=== PATIENT | male | born 1970 | race Caucasian/White ===

== ENCOUNTER → 2018-04-06 | Day surgery (SDC) | payer BC ==
[~2018-04-06] MED LIST: ANTIBIOTIC PO; CLARITIN-D 241 EACH PO; FENTANYL CITRATE/PF 100MCG/2 ML INJ ONE; HYOSCYAMINE SULFATE 0.5 MG/ML AMP ONE; LEXAPRO10 MG PO; LIDOCAINE HCL 2% LOCAL INJ 5 ML SDV VIAL INJ ONE; MIDAZOLAM HCL 2 MG/2 ML VIAL ONE; MULTIVITAMIN; PANTOPRAZOLE SO40 MG PO; PHENYLEPHRINE HCL 1% 10 MG/ML VIAL ONE; PROPOFOL IV EMULSION 10 MG/ML 50 ML VIAL ONE; PROTONIX
--- OUTSIDE RECORDS SUMMARY | 2018-04-06 07:10 | XMS REPORT ---
Author Author [facility] Address Unknown Phone Unavailable Care Team Providers Care [employer] Worker [employer]man Name Role Phone SHAHRZAD SPENCER Unavailable Unavailable Problems This patient has no known problems. Allergies, Adverse Reactions, Alerts This patient has no known allergies or adverse reactions. Medications This patient has no known medications. Results Test Description Test Time Test Comments Text Results Atomic Results Result Comments CT CHEST WO [place] [address] Patient Name: BLAISE ALEJO MR #: [id number] : 1970 Age/Sex: 46/M Req #: [id number] Adm Physician: Ordered by: SHAHRZAD SPENCER DO Report #: [id number] Location: CT Room/Bed: Procedure: [id number] CT/CT CHEST WO Exam Date: 10/11/17 Exam Time: 1400 REPORT STATUS: Signed PROCEDURE: CT CHEST WITHOUT CONTRAST CT scan of the chest WITHOUT intravenous contrast, using standard protocol. TECHNIQUE: The chest was scanned utilizing a multidetector helical scanner from the apex to the level of the adrenal glands. No IV contrast was administered per protocol/per physician request). Coronal and sagittal multiplanar reformations were obtained. COMPARISON: [facility], CT, CT ABDOMEN/PELVIS W, 09/20/2017, 15:35. INDICATIONS: LUNG NODULES FINDINGS: Lines/tubes: None. Lungs and Airways: There is a 0.6 cm subpleural nodule with central cavitation in the posterior lateral right lower lobe on coronal image 90; this corresponds to the previously described are 0.6 cm in nodule. No additional pulmonary nodules are noted. Mild lingular linear atelectasis or scarring. Pleura: The pleural spaces are clear. Heart and mediastinum: The thyroid gland is normal. No significant mediastinal, hilar or axillary lymphadenopathy is seen. The heart and pericardium are within normal limits. Atherosclerotic ulcerations of the thoracic aorta including major branches without aneurysmal dilatation. Mild calcifications of the LAD coronary artery.. Soft tissues: Normal. Abdomen: Limited views of the upper abdomen show no abnormality within the visualized liver, spleen, pancreas, or kidneys. The adrenal glands are normal. Bones: Small midthoracic Schmorl's nodes. Mild bilateral gynecomastia, right greater than left. IMPRESSION : 1. 0.6 cm right lower lobe nodule with small central cavitation is stable in this short interval since the prior CT examination of the abdomen. No additional pulmonary nodules. Recommend followup CT chest nodule protocol in one year. Shilo Rosa M.D. Dictated by: Shilo Rosa M.D. on 10/11/2017 at 14:50 Electronically approved by : Shilo Rosa M.D. on 10/11/2017 at 14:50 Dictated By: HUMA ROSA MD, MD [id number] COPY TO: SHAHRZAD SPENCER DO CT ABDOMEN/PELVIS [place] [address] Patient Name: BLAISE ALEJO MR #: [id number] : 1970 Age/Sex: 46/M Req #: [id number] Adm Physician: Ordered by: SHAHRZAD SPENCER DO Report #: [id number] Location: CT Room/Bed: Procedure: [id number] CT/CT ABDOMEN/PELVIS W Exam Date: 09/20/17 Exam Time : 1525 REPORT STATUS: Signed EXAM: CT Abdomen and Pelvis WITH contrast INDICATION: Abdominal pain and leukocytosis. COMPARISON: 04/13/2015. TECHNIQUE: Abdomen and pelvis were scanned utilizing a multidetector helical scanner from the lung base to the pubic symphysis after administration of IV contrast. Coronal and sagittal reformations were obtained. Routine protocol was performed. Scan was performed when during portal venous phase. IV CONTRAST: 100 cc Isovue-370. ORAL CONTRAST: Water RADIATION DOSE: Total DLP: 776.81 mGy*cm Estimated effective dose: (DLP x 0.015 x size factor) mSv COMPLICATIONS: None FINDINGS: LINES and TUBES: None. LOWER THORAX: Small, 6 mm groundglass nodule in the posterior left lower lobe on image 13 series 2. Mild bibasilar dependent atelectasis. HEPATOBILIARY: No focal hepatic lesions. No biliary ductal dilation. GALLBLADDER: No radio-opaque stones or sludge. No wall thickening. SPLEEN: No splenomegaly. PANCREAS: No focal masses or ductal dilatation. ADRENALS: No adrenal nodules. KIDNEYS/URETERS: Kidneys enhance symmetrically. No hydronephrosis. No cystic or solid mass lesions. No stones. GI TRACT: No abnormal distention, wall thickening, or evidence of bowel obstruction. Appendix is normal. Previously present colitis has resolved. PELVIC ORGANS/BLADDER: Unremarkable. LYMPH NODES: No lymphadenopathy. VESSELS: Mild atherosclerotic calcifications of the aorta and iliac arteries without aneurysmal dilatation. PERITONEUM / RETROPERITONEUM: No free air or fluid. BONES: Unremarkable. SOFT TISSUES: Diastasis of the rectus abdominis muscle. Mild periumbilical bulge, however, fibrosis appears intact. IMPRESSION: 1. No acute abdominal pelvic abnormality. Colitis present on the prior examination of 2014 has resolved. Signed by: Dr. Shilo Rosa M.D. on 09/20/2017 6:53 PM Dictated By: HUMA ROSA MD, MD 52 Transcribed By: KIA on 09/20/171852 COPY TO: SHAHRZAD SPENCER DO
--- NOTE | 2018-04-06 11:04 | Operative Report ---
DATE OF PROCEDURE: April 06, 2018 REFERRING PHYSICIAN: Dr. Chandra Spencer PROCEDURE PERFORMED: Colonoscopy and polypectomy. INDICATIONS FOR COLONOSCOPY: Colorectal cancer screening. Personal history of colon polyps, suboptimal prep on previous colonoscopy. MEDICATION: Patient was done under MAC. Please see anesthesiologist's note. PROCEDURE: With the patient in the left lateral decubitus position, the flexible fiberoptic Olympus colonoscope was inserted into the rectum with ease and advanced all the way to the cecum. The scope was then withdrawn slowly. Mucosa overlying the cecum and ascending colon appeared to be within normal limits other than for minimal diverticular disease. One polyp was snared and 1 polyp was hot biopsied from the transverse colon. Descending colon appeared to be within normal limits. One polyp was hot biopsied from the sigmoid, and 6 polyps were hot biopsied from the rectum. The scope was then retroflexed into the distal rectum, and small internal hemorrhoids were noted, none of which was actively bleeding. The scope was then straightened out. The rectosigmoid area as well as the distal rectal area were decompressed. Scope was subsequently withdrawn. Patient tolerated the procedure well. IMPRESSION 1. Transverse colon polyps times 2, one snared and one hot biopsied. 2. Sigmoid colon polyp, hot biopsied times 1. 3. Diverticulosis, minimal. 4. Rectal polyps times 6, hot biopsied. 5. Internal hemorrhoids, none actively bleeding. PLAN: Follow up histology. Initiate high-fiber, low-fat diet. Initiate high-fiber supplement. Patient might benefit from a followup colonoscopy in 3 years. Job#: [id number] cc:SHAHRZAD SPENCER DO
== END | disposition home or self-care (01) ==
LOC: OR 07:08
PROVIDERS: ATTEND Internal Medicine Gastroenterology
DX: Z09 Encounter for follow-up examination after completed treatment for conditions other than malignant neoplasm (principal); K63.5 Polyp of colon; K62.1 Rectal polyp; K57.30 Diverticulosis of large intestine without perforation or abscess without bleeding; K64.8 Other hemorrhoids; Z86.010 Personal history of colon polyps; K21.9 Gastro-esophageal reflux disease without esophagitis; F41.9 Anxiety disorder, unspecified; F17.210 Nicotine dependence, cigarettes, uncomplicated; Z71.3 Dietary counseling and surveillance; Z68.34 Body mass index [BMI] 34.0-34.9, adult; Z01.810 Encounter for preprocedural cardiovascular examination; Z88.5 Allergy status to narcotic agent
CPT/HCPCS: 45384; 45385; 93005; J1980; J2001; J2250; J2370; 45378

== ENCOUNTER → 2018-11-15 | Outpatient (CLI) | payer BC ==
[~2018-11-15] MED LIST changes: -FENTANYL CITRATE/PF 100MCG/2 ML INJ ONE; -HYOSCYAMINE SULFATE 0.5 MG/ML AMP ONE; +IOPAMIDOL 370 MG/ML 200 ML INFUS..BTL INJ ONE; -LIDOCAINE HCL 2% LOCAL INJ 5 ML SDV VIAL INJ ONE; -MIDAZOLAM HCL 2 MG/2 ML VIAL ONE; -PHENYLEPHRINE HCL 1% 10 MG/ML VIAL ONE; -PROPOFOL IV EMULSION 10 MG/ML 50 ML VIAL ONE; +SODIUM CHLORIDE 0.9% 50ML 50 ML ONE
--- NOTE | 2018-11-15 12:52 | Diagnostic Imaging Report ---
EXAMINATION: CT of the chest with contrast, standard protocol. TECHNIQUE: Spiral CT images of the chest were performed from the lung apices through the level of the adrenal glands after the IV administration of 100 cc of Isovue 370.. Coronal and sagittal reformatted images were available. COMPARISON: CT chest without contrast 10/11/2017 CLINICAL HISTORY:Chest pain, lung nodule DISCUSSION: Lungs: 5 mm right lower lobe pulmonary nodule remains unchanged relative to 11 05/11/2017 and is seen on series 3 image 43. Lungs are otherwise clear. No consolidation, fibrotic change, or bronchiectasis. Airways: Trachea, mainstem bronchi, and central lobar and segmental bronchi are patent. Pleura: <There is no evidence of pleural effusion or pneumothorax.> Heart and mediastinum: Visualized portions of the thyroid gland are normal. No ectasia or aneurysmal dilatation of the thoracic aorta. Pulmonary outflow tract is of normal caliber. No pericardial effusion. No axillary, hilar, or mediastinal lymphadenopathy. Atherosclerotic calcification of the left anterior descending coronary artery seen on series 2 image 32. Abdomen: Visualized portions of the liver, spleen, gallbladder, pancreas, and adrenal glands are unremarkable. Bones and soft tissues: No osseous destructive lesions. No focal soft tissue abnormalities. IMPRESSION: Stable right lower lobe pulmonary nodule measuring 5 mm. Given stability dating back to 09/20/2017, no further imaging follow-up is necessary. Atherosclerotic calcification of the left anterior descending coronary artery. Signed by: Dr. Karri Ruff M.D. on 11/15/2018 12:49 PM
== END ==
LOC: CT 11:23
PROVIDERS: ATTEND Family Medicine
DX: R91.1 Solitary pulmonary nodule (principal); R07.9 Chest pain, unspecified
CPT/HCPCS: 71260; Q9967